=== PATIENT | female | born 2000 | race Caucasian/White ===

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

== ENCOUNTER 2024-12-06 15:14 | Emergency (ER) | payer OTHER ==
[~2024-12-06] VITALS: Ht 149.9 cm; Wt 74.8 kg
[~2024-12-06 15:14] MED LIST: MONODOX100 MG PO
[2024-12-06] MEDS ORDERED: FAMOTIDINE/PF 20 MG in 0.9 % SODIUM CHLORIDE 8 ML IV PUSH STA (16:42)
[2024-12-06] MEDS ORDERED: ONDANSETRON HCL 2 MG/ML VIAL IV ONE (16:45)
[2024-12-06] MEDS ORDERED: 0.9 % SODIUM CHLORIDE 1,000 ML IV SCH (16:45)
[2024-12-06] MEDS ORDERED: FAMOTIDINE/PF 20 MG/2 ML VIAL ONE (16:46)
[2024-12-06] MEDS ORDERED: ONDANSETRON HCL 2 MG/ML VIAL ONE (16:46)
[2024-12-06 17:24] LABS: BASO % 0.2 % (0.1-1.2); EOS # 0.02 (0.04-0.54); EOS % 0.2 % (0.7-7.0); HEMATOCRIT 38.9 % (34.1-44.9); HEMOGLOBIN 13.7 g/dL (11.2-15.7); LYMPH # 1.77 (1.18-3.74); LYMPH % 17.6 % (19.3-53.1); MEAN CORPUSCULAR HEMOGLOBIN 30.5 pg (25.6-32.2); MONO # 0.69 (0.24-0.82); MONO % 6.9 % (4.7-12.5); NEUT # 7.52 (1.56-6.13); NEUT % 74.8 % (34.0-71.1); PLATELET COUNT 276 K/uL (163-369); RED BLOOD COUNT 4.49 M/uL (3.93-5.22); RED CELL DISTRIBUTION WIDTH 12.2 % (11.6-14.4)
[2024-12-06 17:55] LABS: INFLUENZA A AG NEGATIVE (NEGATIVE)
[2024-12-06 17:56] LABS: COVID-19 AG NEGATIVE (NEGATIVE)
[2024-12-06 18:05] LABS: ALBUMIN 3.5 gm/dL (3.4-5.0); BILIRUBIN TOTAL 0.66 mg/dL (0.3-1.2); CREATININE SERUM 0.51 mg/dL (0.55-1.02); GFR 149.44; GLOBULINA 3.9 G/DL (2.4-3.5); POTASSIUM 3.79 mEq/L (3.5-5.1); TOTAL PROTEIN 7.4 gm/dL (6.4-8.2)
[2024-12-06] MEDS ORDERED: ONDANSETRON ODT8 MG PO (19:25)
[2024-12-06] MEDS ORDERED: PEPCID AC20 MG PO (19:25)
== END 2024-12-06 19:45 | disposition home or self-care (01) ==
LOC: ER 15:14
PROVIDERS: General Practice
DX: K52.89 Other specified noninfective gastroenteritis and colitis (principal); Z20.822 Contact with and (suspected) exposure to COVID-19

== ENCOUNTER 2025-04-01 12:33 | Inpatient (IN) | payer OTHER ==
[~2025-04-01] VITALS: Ht 149.9 cm; Wt 78.9 kg
[~2025-04-01 12:33] MED LIST changes: +ONDANSETRON ODT8 MG PO; +PEPCID AC20 MG PO
[2025-04-01] MEDS ORDERED: AMPICILLIN SODIUM 2,000 MG VIAL ONE (12:38)
[2025-04-01] MEDS ORDERED: BETAMETHASONE ACETATE,SOD PHOS 30 MG/5 ML ML ONE (12:40)
[2025-04-01 12:49] VITALS: BP 111/76
[2025-04-01] MEDS ORDERED: AMPICILLIN SODIUM 2,000 MG VIAL IV ONE (13:45)
[2025-04-01] MEDS ORDERED: RINGERS SOLUTION,LACTATED 1,000 ML IV SCH (13:45)
[2025-04-01] MEDS ORDERED: BETAMETHASONE ACETATE,SOD PHOS 30 MG/5 ML ML IM ONE (13:45)
[2025-04-01 13:55] LABS: BASO % 0.2 % (0.1-1.2); EOS # 0.02 (0.04-0.54); EOS % 0.2 % (0.7-7.0); LYMPH # 1.56 (1.18-3.74); LYMPH % 15.0 % (19.3-53.1); MEAN PLATELET VOLUME 9.40 fl (9.4-12.4); MONO # 0.70 (0.24-0.82); MONO % 6.8 % (4.7-12.5); NEUT # 8.01 (1.56-6.13); NEUT % 77.2 % (34.0-71.1); RED CELL DISTRIBUTION WIDTH 12.4 % (11.6-14.4)
[2025-04-01 14:06] LABS: URINE APPEARANCE Cloudy; URINE BILIRRUBIN Negative (NEGATIVE); URINE BLOOD Large; URINE COLOR Dark Yellow; URINE KETONE 15 (NEGATIVE); URINE LEUKOCYTE Small; URINE NITRATE Negative; URINE PROTEIN 30 (NEGATIVE); URINE UROBILINOGEN 1.0 E.U./dl
[2025-04-01 14:07] LABS: URINE BACTERIA 980.2 uL (0.0-1933); URINE EPITHELIAL CELLS 21.5 uL (0.0-38.8); URINE RBC 4.9 uL (0.0-20.8); URINE WBC 62.3 uL (0.0-23.2)
[2025-04-01 14:24] LABS: INR 0.94
[2025-04-01 15:14] VITALS: BP 99/62
[2025-04-01 15:18] LABS: ALT/SGPT 25.0 U/L (12-78); AST/SGOT 18.0 U/L (15-37); BILIRUBIN TOTAL 0.39 mg/dL (0.3-1.2); BUN CREA RATIO 13.0 (7.0-25.0); CREATININE SERUM 0.52 mg/dL (0.55-1.02); GFR 144.87; GLOBULINA 3.4 G/DL (2.4-3.5); GLUCOSE FASTING 99.0 mg/dL (65-100); OSMOLALITY SERUM 279.0 MOSM/KG (275-295); TYPE CELLS SQUAMOUS; URINE CAST 0.58 uL (0.0-1.40); URINE GLUCOSE 100 MG/DL (NEGATIVE); URINE MUCUS SCANT
[2025-04-01] MEDS ORDERED: AMPICILLIN SODIUM 1,000 MG VIAL IV SCH (20:00)
[2025-04-01 20:30] VITALS: BP 108/72
[2025-04-01 23:17] VITALS: BP 97/64
[2025-04-02 04:17] VITALS: BP 100/66
[2025-04-02 07:46] VITALS: BP 84/52
[2025-04-02 11:21] VITALS: BP 118/78
[2025-04-02] MEDS ORDERED: BETAMETHASONE ACETATE,SOD PHOS 30 MG/5 ML ML ONE (12:51)
[2025-04-02] MEDS ORDERED: BETAMETHASONE ACETATE,SOD PHOS 30 MG/5 ML ML IM ONE (13:30)
[2025-04-02 15:23] VITALS: BP 91/63; O2SAT 100
[2025-04-02 19:00] VITALS: BP 101/61
[2025-04-03 01:00] VITALS: BP 97/66
[2025-04-03 09:20] VITALS: BP 101/65
[2025-04-03 17:57] LABS: BASO % 0.1 % (0.1-1.2); EOS # 0.01 (0.04-0.54); EOS % 0.1 % (0.7-7.0); LYMPH # 2.16 (1.18-3.74); LYMPH % 17.1 % (19.3-53.1); MEAN PLATELET VOLUME 9.50 fl (9.4-12.4); MONO # 1.35 (0.24-0.82); MONO % 10.7 % (4.7-12.5); NEUT # 8.92 (1.56-6.13); NEUT % 70.8 % (34.0-71.1); RED CELL DISTRIBUTION WIDTH 12.5 % (11.6-14.4)
[2025-04-03 18:21] LABS: ALT/SGPT 41.0 U/L (12-78); AST/SGOT 19.0 U/L (15-37); BILIRUBIN TOTAL 0.3 mg/dL (0.3-1.2); BUN CREA RATIO 17.0 (7.0-25.0); CREATININE SERUM 0.42 mg/dL (0.55-1.02); GFR 185.36; GLOBULINA 3.2 G/DL (2.4-3.5); GLUCOSE FASTING 96.0 mg/dL (65-100); OSMOLALITY SERUM 283.0 MOSM/KG (275-295)
[2025-04-03 18:33] VITALS: BP 109/79
[2025-04-04 00:15] VITALS: BP 112/75
[2025-04-04 07:43] VITALS: BP 94/60
[2025-04-04] MEDS ORDERED: METOCLOPRAMIDE HCL 10 MG TABLET PO SCH (10:17)
[2025-04-04 16:00] VITALS: BP 124/75
[2025-04-05] VITALS: BP 94/63
[2025-04-05 10:00] VITALS: BP 101/63
[2025-04-05] MEDS ORDERED: IRON FUM,PS/FOLIC ACID/VITC/B3 1 CAP CAPSULE PO NR (13:00)
[2025-04-05 16:16] VITALS: BP 113/74
[2025-04-05 23:50] VITALS: BP 105/71
[2025-04-06 08:09] VITALS: BP 109/72
[2025-04-06] MEDS ORDERED: IRON FUM,PS/FOLIC ACID/VITC/B3 1 CAP CAPSULE PO SCH (09:00)
[2025-04-06 16:26] VITALS: BP 102/65
[2025-04-07 00:22] VITALS: BP 90/60
[2025-04-07 08:24] VITALS: BP 96/64
[2025-04-07 18:26] VITALS: BP 109/73
[2025-04-08] VITALS (7 sets, daily range): BP systolic 94–114; BP diastolic 60–78; O2SAT 100
[2025-04-08] MEDS ORDERED: RINGERS SOLUTION,LACTATED 1,000 ML IV.SOLN ONE (09:15)
[2025-04-08] MEDS ORDERED: RINGERS SOLUTION,LACTATED 1,000 ML IV SCH (09:30)
[2025-04-09 03:20] VITALS: BP 103/69
[2025-04-09 07:18] VITALS: BP 107/70
[2025-04-09 12:08] VITALS: BP 106/73
[2025-04-09 17:06] VITALS: BP 101/67
[2025-04-10 00:32] VITALS: BP 103/66
[2025-04-10 08:00] VITALS: BP 105/73
[2025-04-10 13:57] VITALS: BP 119/82
[2025-04-10] MEDS ORDERED: ACETAMINOPHEN 500 MG GEL..CAP PO PRN (14:30)
[2025-04-10 16:04] VITALS: BP 123/84
[2025-04-11] VITALS: BP 93/60
[2025-04-11 08:03] VITALS: BP 119/76
[2025-04-11 16:15] VITALS: BP 108/78
[2025-04-12 00:37] VITALS: BP 103/69
[2025-04-12 08:00] VITALS: BP 90/55
== END 2025-04-12 10:44 | disposition home or self-care (01) | DRG 833 ==
LOC: LDR 12:33 → OB/GYN 04-02 17:14
PROVIDERS: ADMIT Obstetrics & Gynecology; ATTEND Obstetrics & Gynecology
PROC: 4A1HXCZ Monitoring of Products of Conception, Cardiac Rate, External Approach (ICD-10-PCS; principal; 2025-04-01)
PROC: BU4CZZZ Ultrasonography of Uterus and Ovaries (ICD-10-PCS; 2025-04-01)
PROC: BY4CZZZ Ultrasonography of Second Trimester, Single Fetus (ICD-10-PCS; 2025-04-01)
DX: O26.852 Spotting complicating pregnancy, second trimester (principal); O26.842 Uterine size-date discrepancy, second trimester; O36.8120 Decreased fetal movements, second trimester, not applicable or unspecified; O60.02 Preterm labor without delivery, second trimester; O44.02 Complete placenta previa NOS or without hemorrhage, second trimester; O99.012 Anemia complicating pregnancy, second trimester; D64.9 Anemia, unspecified; Z3A.25 25 weeks gestation of pregnancy

== ENCOUNTER 2025-05-15 16:39 | Inpatient (IN) | payer OTHER ==
[~2025-05-15] VITALS: Ht 152.4 cm; Wt 81.6 kg
[2025-05-15 15:16] VITALS: BP 96/68
[2025-05-15] MEDS ORDERED: RINGERS SOLUTION,LACTATED 1,000 ML IV SCH (17:15)
[2025-05-15 17:28] LABS: URINE APPEARANCE Clear; URINE BILIRRUBIN Negative (NEGATIVE); URINE BLOOD Negative; URINE COLOR Yellow; URINE GLUCOSE Negative (NEGATIVE); URINE KETONE Trace (NEGATIVE); URINE LEUKOCYTE Trace; URINE NITRATE Negative; URINE PROTEIN Negative (NEGATIVE); URINE UROBILINOGEN 1.0 E.U./dl
[2025-05-15 17:28] LABS: BASO % 0.2 % (0.1-1.2); EOS # 0.02 (0.04-0.54); EOS % 0.2 % (0.7-7.0); LYMPH # 1.80 (1.18-3.74); LYMPH % 17.6 % (19.3-53.1); MEAN PLATELET VOLUME 9.60 fl (9.4-12.4); MONO # 0.84 (0.24-0.82); MONO % 8.2 % (4.7-12.5); NEUT # 7.46 (1.56-6.13); NEUT % 72.8 % (34.0-71.1); RED CELL DISTRIBUTION WIDTH 12.7 % (11.6-14.4)
[2025-05-15] MEDS ORDERED: BETAMETHASONE ACETATE,SOD PHOS 30 MG/5 ML ML IM ONE (17:30)
[2025-05-15 17:32] LABS: URINE BACTERIA 3378.0 uL (0.0-1933); URINE EPITHELIAL CELLS 11.9 uL (0.0-38.8); URINE RBC 6.7 uL (0.0-20.8); URINE WBC 59.9 uL (0.0-23.2)
[2025-05-15 17:39] LABS: URINE CAST 0.29 uL (0.0-1.40)
[2025-05-15 17:49] LABS: INR < 0.93
[2025-05-15 17:54] LABS: ALT/SGPT 26.0 U/L (12-78); AST/SGOT 19.0 U/L (15-37); BILIRUBIN TOTAL 0.28 mg/dL (0.3-1.2); BUN CREA RATIO 15.0 (7.0-25.0); CREATININE SERUM 0.4 mg/dL (0.55-1.02); GFR 196.1; GLOBULINA 3.3 G/DL (2.4-3.5); GLUCOSE FASTING 93.0 mg/dL (65-100); OSMOLALITY SERUM 280.0 MOSM/KG (275-295)
[2025-05-15 18:25] LABS: URINE MUCUS SCANT
[2025-05-15] MEDS ORDERED: PREVACID30 MG PO (19:06)
[2025-05-15] MEDS ORDERED: PRENATAL + DHA1 EAC1 PO (19:07)
[2025-05-15] MEDS ORDERED: HIERRO PO (19:07)
[2025-05-15 21:25] VITALS: BP 90/58
[2025-05-15 23:44] VITALS: BP 90/57
[2025-05-16 04:07] VITALS: BP 100/62
[2025-05-16 06:12] VITALS: BP 98/63; O2SAT 99
[2025-05-16] MEDS ORDERED: AMPICILLIN SODIUM 1,000 MG in DEXTROSE 5 % IN WATER 100 ML IV SCH ×2 (07:48→14:00)
[2025-05-16 11:57] VITALS: BP 102/70
[2025-05-16 15:24] VITALS: BP 102/71
[2025-05-16] MEDS ORDERED: BETAMETHASONE ACETATE,SOD PHOS 30 MG/5 ML ML IM ONE (17:30)
[2025-05-16 19:08] VITALS: BP 106/75
[2025-05-17 00:07] VITALS: BP 95/60
[2025-05-17 08:05] VITALS: BP 108/73
[2025-05-17] MEDS ORDERED: AMOXICILLIN500 MG PO (13:32)
[2025-05-17] MEDS ORDERED: MAXFE CAPLET1 EAC1 PO (13:33)
== END 2025-05-17 15:08 | disposition home or self-care (01) | DRG 832 ==
LOC: LDR 16:39 → OB/GYN 05-16 16:50
PROVIDERS: ADMIT Obstetrics & Gynecology; ATTEND Obstetrics & Gynecology
PROC: 4A1HXCZ Monitoring of Products of Conception, Cardiac Rate, External Approach (ICD-10-PCS; principal; 2025-05-15)
PROC: BY4FZZZ Ultrasonography of Third Trimester, Single Fetus (ICD-10-PCS; 2025-05-16)
DX: O36.8130 Decreased fetal movements, third trimester, not applicable or unspecified (principal); O47.03 False labor before 37 completed weeks of gestation, third trimester; O26.843 Uterine size-date discrepancy, third trimester; Z3A.32 32 weeks gestation of pregnancy

== ENCOUNTER 2025-06-14 10:46 | Outpatient (CLI) | payer OTHER ==
[~2025-06-14 10:46] MED LIST changes: +AMOXICILLIN500 MG PO; +HIERRO PO; +MAXFE CAPLET1 EAC1 PO; +PRENATAL + DHA1 EAC1 PO; +PREVACID30 MG PO
== END 2025-06-14 10:47 | disposition home or self-care (01) ==
LOC: PRENATAL 10:46
PROVIDERS: ATTEND Obstetrics & Gynecology Maternal & Fetal Medicine
DX: O26.843 Uterine size-date discrepancy, third trimester (principal); O36.8130 Decreased fetal movements, third trimester, not applicable or unspecified; O43.93 Unspecified placental disorder, third trimester; Z3A.34 34 weeks gestation of pregnancy